=== PATIENT | female | born 1945 | race Caucasian/White ===

== ENCOUNTER 2021-05-02 08:47 | Inpatient (IN) ==
--- NOTE | 2021-05-02 08:54 | DR.CP ---
HPI Time Seen Time Seen by Provider: 05/02/21 08:53 Complaint Chief Complaint Doctor Comments: 75 y/o female presents with sudden onset of chest discomfort, chest congestion this am. Was fine on awakening. Denies recent illness, did have recent GB surgery about 10 days ago. Has been laying around a lot. Suddenly felt chest congestion, associated with chest discomfort. Pain is pressure like, across the chest, does not radiate. Nothing makes it better, nothing makes it worse. Took her morning meds, including ASA. COVID-19 Coronavirus risk:travel/contact w/high risk person: No Has patient experienced Coronavirus symptoms: Yes Coronavirus symptoms experienced: Shortness of Breath Reviewed Nurses Notes Review: Yes Source History Provided: Patient Mode of Arrival Mode of Arrival: Wheelchair PMH PMH Past Medical History: Coronary Artery Disease, Diabetes and Hypertension Past Surgical History: Yes Surgical History: Cholecystectomy Family History History of Family Medical Conditions: No Social History Does patient currently use any type of tobacco product: No Alcohol Use: None Do you use any recreational Drugs:: No Travel Risk Coronavirus risk:travel/contact w/high risk person: No ROS Review of Systems Constitutional: Weakness Eyes: No Symptoms Reported ENTM: No Symptoms Reported Respiratoy: Short of Breath Cardiovascular: Chest Pain Gastrointestinal/Abdominal: No Symptoms Reported Genitourinary: No Symptoms Reported Neurological: No Symptoms Reported Musculoskeletal: No Symptoms Reported Integumentary: No Symptoms Reported Hematologic/Lymphatic: No Symptoms Reported Endocrine: No Symptoms Reported Psychiatric: No Symptoms Reported All Other Systems: Reviewed and Negative PE Vitals Vitals: Temperature 97.7 F Pulse Rate 70 Respiratory Rate 32 Blood Pressure 135/62 O2 Sat by Pulse Oximetry 100 General Limitations: No Limitations General Appearance: Alert and In Distress Head Head Exam: Normal Inspection Eyes Eye exam: Normal Appearance, PERRL and EOMI ENT ENT Exam: Normal Exam Chest Chest Inspection: Normal Inspection Respiratory Respiratory Exam: Normal Lung Sounds Bilat and Respiratory Distress; negative Accessory Muscle Use Respiratory Exam: Bilateral: Clear to Auscultation Cardiovascular Cardiovascular Exam: Regular Rate, Normal Rhythm and Normal Heart Sounds Abdominal Exam Abdominal Exam: Normal Inspection, Normal Bowel Sounds and Soft; negative Tenderness Extremities Extremities Exam: Normal Inspection and Full ROM; negative Tenderness and Edema Back Back Exam: Normal Inspection Neurologic Neurological Exam: Alert, Oriented X3 and CN II-XII Intact; negative Motor Sensory Deficit Psychiatric Psychiatric Exam: Anxious Skin Skin Exam: Warm and Dry MDM Differential Diagnosis Differential Diagnosis: Angina, Aortic Dissection, CHF, Myocardial Infarction, Pneumonia and Pulmonary Embolus COURSE Treatment Treatment: 75 y/o female presents with chest discomfort and dyspnea. Has been recovering from GB surgery, laying around more. W/u initiated. 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 CXR with probable CHF, given IV lasix, IV morphine. BNP is elevated to 599. D-dimer elevated as well, will pursue CTA of the chest to r/o PE. CTA without PEs, + has CHF, + bibasilar atelectasis, vs infiltrate. Given addirtional IV lasix, given IV rocephin for antibiotic coverage. Discussed with her MD, Dr. Crews, will admit. ROR Labs Reviewed Laboratory Results Reviewed?: Yes Result Diagrams: 05/02/21 08:49 05/02/21 08:49 Laboratory: WBC 12.9 X10^3/uL (3.6-10.0) H 05/02/21 08:49 RBC 4.08 X10^6/uL (3.5-5.4) 05/02/21 08:49 Hgb 12.3 g/dL (12.0-16.0) 05/02/21 08:49 Hct 37.5 % (36.0-47.0) 05/02/21 08:49 MCV 91.9 fL (80.0-100.0) 05/02/21 08:49 MCH 30.1 pg (27.0-34.0) 05/02/21 08:49 MCHC 32.7 g/dL (33.0-35.0) L 05/02/21 08:49 RDW 14.7 % (11.6-16.5) 05/02/21 08:49 Plt Count 333 X10^3/uL (150.0-450.0) 05/02/21 08:49 MPV 9.8 fL (7.4-11.0) 05/02/21 08:49 Neut % (Auto) 57.1 % (42.0-75.0) 05/02/21 08:49 Lymph % (Auto) 31.1 % (21.0-51.0) 05/02/21 08:49 [place] % (Auto) 6.4 % (0.0-13.0) 05/02/21 08:49 Eos % (Auto) 4.2 % (0.9-2.9) H 05/02/21 08:49 Baso % (Auto) 1.2 % (0.2-1.0) H 05/02/21 08:49 Neut # (Auto) 7.3 x10^3/uL (2.2-4.8) H 05/02/21 08:49 Lymph # (Auto) 4.0 X10^3/uL (1.3-2.9) H 05/02/21 08:49 [place] # (Auto) 0.8 x10^3/uL (0.3-0.8) 05/02/21 08:49 Eos # (Auto) 0.5 x10^3/uL (0.0-0.2) H 05/02/21 08:49 Baso # (Auto) 0.2 X10^3/uL (0.0-0.1) H 05/02/21 08:49 Absolute Nucleated RBC 0.1 /100WBC 05/02/21 08:49 D-Dimer 1.16 ug/ml (0.0-0.57) H* 05/02/21 08:49 Sodium 138 mmol/L (136-145) 05/02/21 08:49 Corrected Sodium 141 mmol/L (136-145) 05/02/21 08:49 Potassium 3.5 mmol/L (3.5-5.1) 05/02/21 08:49 Chloride 102 mmol/L (98-107) 05/02/21 08:49 Carbon Dioxide 23.3 mmol/L (21-32) 05/02/21 08:49 BUN 16 mg/dL (7-18) 05/02/21 08:49 Creatinine 1.06 mg/dL (0.55-1.02) H 05/02/21 08:49 Est GFR (MDRD) Af Amer > 60 (>60) 05/02/21 08:49 Est GFR (MDRD) Non-Af 54 (>60) L 05/02/21 08:49 Glucose 206 mg/dL (65-99) H 05/02/21 08:49 POC Glucose (mg/dL) 209 mg/dL (65-99) H 05/02/21 08:52 Calcium 8.7 mg/dL (8.5-10.1) 05/02/21 08:49 Corrected Calcium TNP 05/02/21 08:49 Total Bilirubin 0.30 mg/dL (0.2-1.0) 05/02/21 08:49 AST 21 Units/L (15-37) 05/02/21 08:49 ALT 32 Units/L (12-78) 05/02/21 08:49 Alkaline Phosphatase 55 Units/L (46-116) 05/02/21 08:49 Creatine Kinase 55 Units/L (26-192) 05/02/21 08:49 CK-MB (CK-2) < 1.0 ng/mL (0-4.0) 05/02/21 08:49 CK/CKMB % Calc 1.8 % (<4) 05/02/21 08:49 Troponin I 0.07 ng/mL (0-1.5) 05/02/21 08:49 B-Natriuretic Peptide 599 pg/mL (0-79) H* 05/02/21 08:49 Total Protein 7.2 g/dL (6.4-8.2) 05/02/21 08:49 Albumin 3.4 g/dL (3.4-5.0) 05/02/21 08:49 Globulin 3.8 g/dL (2.5-4.5) 05/02/21 08:49 Albumin/Globulin Ratio 0.9 Ratio (1.1-2.1) L 05/02/21 08:49 SARS-CoV-2 (PCR) Negative (NEGATIVE) 05/02/21 09:10 Influenza Type A (PCR) Negative (NEGATIVE) 05/02/21 09:10 Influenza Type B (PCR) Negative (NEGATIVE) 05/02/21 09:10 RSV (PCR) Negative (NEGATIVE) 05/02/21 09:10 XRAY XRAY Interpreted by: Radiologist X-ray Results: CXR - + pulmonary vascular congestion. CTA - + CHF, effusion. EKG Rate: 96 [place]: Normal Rhythm: NSR Block: None Hypertrophy: None ST: Nonsp (probable old anterior ND) Opioid Opioid Risk Tool Total: 0 Total Score Risk Category: Low Risk Copyright: Isidoro DELANEY predicting aberrant behaviors Diagnosis Discharge Problem: New onset of congestive heart failure Instructions Forms: Precautions for COVID19 [facility] Patient Portal Social Distancing
[2021-05-02 09:00] VITALS: BMI 31.5
[2021-05-02 09:06] LABS: BASOPHILS # (AUTO) 0.2 X10^3/uL (0.0-0.1); BASOPHILS % (AUTO) 1.2 % (0.2-1.0); EOSINOPHILS # (AUTO) 0.5 x10^3/uL (0.0-0.2); EOSINOPHILS % (AUTO) 4.2 % (0.9-2.9); HEMATOCRIT 37.5 % (36.0-47.0); HEMOGLOBIN 12.3 g/dL (12.0-16.0); LYMPHOCYTES % (AUTO) 31.1 % (21.0-51.0); MEAN CORPUSCULAR HEMOGLOBIN 30.1 pg (27.0-34.0); MEAN CORPUSCULAR HGB CONC 32.7 g/dL (33.0-35.0); MEAN CORPUSCULAR VOLUME 91.9 fL (80.0-100.0); MEAN PLATELET VOLUME 9.8 fL (7.4-11.0); MONOCYTES # (AUTO) 0.8 x10^3/uL (0.3-0.8); MONOCYTES % (AUTO) 6.4 % (0.0-13.0); NEUTROPHILS # (AUTO) 7.3 x10^3/uL (2.2-4.8); NEUTROPHILS % (AUTO) 57.1 % (42.0-75.0); PLATELET COUNT 333 X10^3/uL (150.0-450.0); RED BLOOD COUNT 4.08 X10^6/uL (3.5-5.4); RED CELL DISTRIBUTION WIDTH 14.7 % (11.6-16.5); WHITE BLOOD COUNT 12.9 X10^3/uL (3.6-10.0)
[2021-05-02] MEDS ORDERED: MORPHINE SULFATE INJ 4 MG IVP ONE (09:08)
[2021-05-02] MEDS ORDERED: LASIX IVP ONE ×2 (09:08→12:31)
[2021-05-02] MEDS ORDERED: LASIX ONE ×2 (09:27→12:53)
[2021-05-02] MEDS ORDERED: MORPHINE SULFATE INJ 4 MG ONE (09:27)
[2021-05-02 09:31] LABS: ALANINE AMINOTRANSFERASE 32 Units/L (12-78); ALBUMIN 3.4 g/dL (3.4-5.0); ALKALINE PHOSPHATASE 55 Units/L (46-116); ASPARTATE AMINO TRANSFERASE 21 Units/L (15-37); BLOOD UREA NITROGEN 16 mg/dL (7-18); CALCIUM 8.7 mg/dL (8.5-10.1); CARBON DIOXIDE 23.3 mmol/L (21-32); CHLORIDE 102 mmol/L (98-107); CKMB % 1.8 % (<4); COR NA(FOR HYPERGLY) 141 mmol/L (136-145); CREATINE KINASE 55 Units/L (26-192); CREATINE KINASE MB < 1.0 ng/mL (0-4.0); CREATININE 1.06 mg/dL (0.55-1.02); SODIUM 138 mmol/L (136-145); TOTAL PROTEIN 7.2 g/dL (6.4-8.2); TROPONIN I 0.07 ng/mL (0-1.5); eGFR NON BLACK RACES 54 (>60)
--- NOTE | 2021-05-02 10:12 | RAD ---
HISTORYChest pain SOBSTUDYPortable AP [id number] size remains normal. There are now bilateral confluent areas of airspace disease, right greater than left. No dominant mass, pneumothorax or pleural fluid is identified.IMPRESSIONInterval appearance of bilateral airspace disease consistent with any combination of pneumonia and pulmonary edema. Correlation with clinical and serologic findings may assist in this radiographic differential.Electronically signed by: JOSE REDDY (May 02, 2021 10:10:29)
--- NOTE | 2021-05-02 11:25 | CT ---
HISTORYShortness of breathSTUDYCTA chest with contrast for pulmonary embolusTechnique: Axial post-contrast images with coronal, sagittal, and 3 dimensional maximum intensity projection images obtained and evaluated. Dose reduction procedures were used with mA/kv adjusted for body size.COMPARISONNoneFINDINGSThere is no evidence for acute pulmonary thromboembolic disease. Examination of the mediastinum demonstrates no evidence for mediastinal masses, enlarged mediastinal or enlarged hilar adenopathy or significant aortic abnormality. The heart is enlarged. Bilateral pleural effusions are present. Coronary artery calcifications are identified. No chest wall or axillary abnormality is identified. Those portions of the upper abdominal organs visualized were within normal limits to the limitations of early arterial injection timing with the exception of a 5 mm nonobstructing left renal calculus. Examination of the lung sinha demonstrated diffusely prominent interstitium with multiple Jourdan's B lines bilaterally. Additionally there is alveolar filling in the upper lobes bilaterally.. Findings would seem most consistent with congestive heart failure in the form of interstitial pulmonary edema and asymmetric alveolar edema. However concomitantl infection should be clinically excluded. Additionally there are areas of atelectasis and possibly consolidation in the in both lower lobes, right greater than left, which could also represent infection. No nodules masses peribronchial thickening, or bronchiectasis is identified.IMPRESSIONNo evidence for acute pulmonary thromboembolic diseaseCardiomegaly with congestive heart failure in the form of interstitial pulmonary edema and likely some asymmetric alveolar edemaAreas of atelectasis/consolidation in the lower lobes bilaterally right greater than left possibly indicative of concomitant infection. Clinical and laboratory correlation is recommended.Bilateral pleural effusions5 mm nonobstructing left upper pole renal calculus incidentally identifiedElectronically signed by: SILVA FARRAR (May 02, 2021 11:22:51)
[2021-05-02] MEDS ORDERED: ROCEPHIN 1 GRAM IV PREMIX 1 G/50 ML IV.SOLN. IV ONE (12:53)
[2021-05-02] MEDS: ROCEPHIN VIAL 1 GRAM 1 G in NS 100 ML IV + SPIKE MINIBAG* 100 ML IV SCH (13:01)
--- NOTE | 2021-05-02 15:34 | DR.H&P ---
H&P History & Physical for Day of: H&P Date: 05/02/21 Chief Complaint Chief Complaint: SOB Allergies Allergies Allergy/AdvReac Type Severity Reaction Status Date / Time Penicillins Allergy Verified 04/19/21 06:50 Sulfa (Sulfonamide Allergy Verified 04/19/21 06:50 Antibiotics) [SULFA] History of Present Illness History of Present Illness: 75 yo WF with acute chest pain and SOB around 0630 this am. The pain was like a tight pressure and she subsequently came to ED for evaluation. She reports nothing made the pain better or worse. Diaphoresis was not present. She does report a ME sometime last year but it was asymptomatic. 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 She does report having a heart valve problem monitored by her grain trimmer. Past Medical History Past Medical History: Arthritis, Coronary Artery Disease, Diabetes, Dyslipidemia and Hypertension Past Surgical History Surgical History: Cholecystectomy and Hysterectomy Additional Surgical History: Right Carpal Tunnel release/ Bilateral Cataract Surgery/Left Foot Surgery Family History Family Medical History: Diabetes Mellitus, Coronary Artery Disease and Hypertension Family History Comment: Kidney disease/ Alcoholism Social History Does patient currently use any type of tobacco product: No Have you used tobacco products in the last 12 months: No Type of Tobacco Use: None Does any household member use tobacco: No Alcohol Use: None Medications Home Medications: Penicillins Allergy (Verified 04/19/21 06:50) Sulfa (Sulfonamide Antibiotics) [SULFA] Allergy (Verified 04/19/21 06:50) CONTINUE taking the following medications amlodipine 10 mg PO DAILY 05/02/21 [History] aspirin 325 mg PO DAILY 05/02/21 [History] hydrocortisone See Rx Instructions .ROUTE .COMPLEX PRN 05/02/21 [History] metformin 500 mg PO BID 05/02/21 [History] metoprolol succinate 25 mg PO DAILY 05/02/21 [History] pioglitazone [Actos] 30 mg PO DAILY 05/02/21 [History] pravastatin 40 mg PO DAILY 05/02/21 [History] valsartan 40 mg PO DAILY 05/02/21 [History] Labs Result Diagrams: 05/02/21 08:49 05/02/21 08:49 Labs: Laboratory WBC 12.9 X10^3/uL (3.6-10.0) H 05/02/21 08:49 RBC 4.08 X10^6/uL (3.5-5.4) 05/02/21 08:49 Hgb 12.3 g/dL (12.0-16.0) 05/02/21 08:49 Hct 37.5 % (36.0-47.0) 05/02/21 08:49 MCV 91.9 fL (80.0-100.0) 05/02/21 08:49 MCH 30.1 pg (27.0-34.0) 05/02/21 08:49 MCHC 32.7 g/dL (33.0-35.0) L 05/02/21 08:49 RDW 14.7 % (11.6-16.5) 05/02/21 08:49 Plt Count 333 X10^3/uL (150.0-450.0) 05/02/21 08:49 MPV 9.8 fL (7.4-11.0) 05/02/21 08:49 Neut % (Auto) 57.1 % (42.0-75.0) 05/02/21 08:49 Lymph % (Auto) 31.1 % (21.0-51.0) 05/02/21 08:49 [place] % (Auto) 6.4 % (0.0-13.0) 05/02/21 08:49 Eos % (Auto) 4.2 % (0.9-2.9) H 05/02/21 08:49 Baso % (Auto) 1.2 % (0.2-1.0) H 05/02/21 08:49 Neut # (Auto) 7.3 x10^3/uL (2.2-4.8) H 05/02/21 08:49 Lymph # (Auto) 4.0 X10^3/uL (1.3-2.9) H 05/02/21 08:49 [place] # (Auto) 0.8 x10^3/uL (0.3-0.8) 05/02/21 08:49 Eos # (Auto) 0.5 x10^3/uL (0.0-0.2) H 05/02/21 08:49 Baso # (Auto) 0.2 X10^3/uL (0.0-0.1) H 05/02/21 08:49 Absolute Nucleated RBC 0.1 /100WBC 05/02/21 08:49 D-Dimer 1.16 ug/ml (0.0-0.57) H* 05/02/21 08:49 Sodium 138 mmol/L (136-145) 05/02/21 08:49 Corrected Sodium 141 mmol/L (136-145) 05/02/21 08:49 Potassium 3.5 mmol/L (3.5-5.1) 05/02/21 08:49 Chloride 102 mmol/L (98-107) 05/02/21 08:49 Carbon Dioxide 23.3 mmol/L (21-32) 05/02/21 08:49 BUN 16 mg/dL (7-18) 05/02/21 08:49 Creatinine 1.06 mg/dL (0.55-1.02) H 05/02/21 08:49 Est GFR (MDRD) Af Amer > 60 (>60) 05/02/21 08:49 Est GFR (MDRD) Non-Af 54 (>60) L 05/02/21 08:49 Glucose 206 mg/dL (65-99) H 05/02/21 08:49 POC Glucose (mg/dL) 209 mg/dL (65-99) H 05/02/21 08:52 Calcium 8.7 mg/dL (8.5-10.1) 05/02/21 08:49 Corrected Calcium TNP 05/02/21 08:49 Total Bilirubin 0.30 mg/dL (0.2-1.0) 05/02/21 08:49 AST 21 Units/L (15-37) 05/02/21 08:49 ALT 32 Units/L (12-78) 05/02/21 08:49 Alkaline Phosphatase 55 Units/L (46-116) 05/02/21 08:49 Creatine Kinase 55 Units/L (26-192) 05/02/21 08:49 CK-MB (CK-2) < 1.0 ng/mL (0-4.0) 05/02/21 08:49 CK/CKMB % Calc 1.8 % (<4) 05/02/21 08:49 Troponin I 0.07 ng/mL (0-1.5) 05/02/21 08:49 B-Natriuretic Peptide 599 pg/mL (0-79) H* 05/02/21 08:49 Total Protein 7.2 g/dL (6.4-8.2) 05/02/21 08:49 Albumin 3.4 g/dL (3.4-5.0) 05/02/21 08:49 Globulin 3.8 g/dL (2.5-4.5) 05/02/21 08:49 Albumin/Globulin Ratio 0.9 Ratio (1.1-2.1) L 05/02/21 08:49 SARS-CoV-2 (PCR) Negative (NEGATIVE) 05/02/21 09:10 Influenza Type A (PCR) Negative (NEGATIVE) 05/02/21 09:10 Influenza Type B (PCR) Negative (NEGATIVE) 05/02/21 09:10 RSV (PCR) Negative (NEGATIVE) 05/02/21 09:10 Review of Systems Constitutional: Weakness Eyes: No Symptoms Reported ENT: No Symptoms Reported Respiratory: Shortness of Breath Cardiovascular: Chest Pain and Orthopnea Gastrointestinal: Diarrhea Genitourinary: No Symptoms Reported Musculoskeletal: No Symptoms Reported Skin: No Symptoms Reported Neurological: No Symptoms Reported Physical Exam Vital Signs: Temperature 98.1 F Pulse Rate [Left Brachial] 86 Pulse Rate 82 Respiratory Rate 20 Blood Pressure [Left Arm] 128/61 Blood Pressure 135/61 O2 Sat by Pulse Oximetry 99 Oriented: Normal Eyes: Normal Ear: Normal Nose: Normal Respiratory: RLL Diminished and LLL Diminished Cardiovascular: Normal : Normal Auscultation: Bowel Sounds: Normal Palpation: Normal Tenderness: Normal Skin: Normal Musculoskeletal: Normal Psychiatric: Normal Mood Description: Calm Affect: Normal Speech Pattern: Clear and Appropriate Assessment/Plan (1) New onset of congestive heart failure: Status: Acute Plan: IV lasix for diuresis. Recheck BNP in am and CXR. (2) Diabetes mellitus type 2 in nonobese: Status: Acute Plan: Sliding scale regular insulin protocol. (3) HTN (hypertension): Status: Acute Plan: Resume home meds but D/C Amlodipine. (4) Heart valve disease: Status: Acute Plan: Consulting Cardiology, Dr. Yepez. (5) Dyspnea due to congestive heart failure: Narrative Support Text: Improved since admission. Status: Acute Plan: Diuresis. (6) Chest pain: Status: Acute Plan: Check Serial CE's. (7) Hypoxia: Status: Acute Plan: Supplemental O2 with IV diuresis. Review H&P Reviewed: Yes Patient was examined?: Yes
[2021-05-02] MEDS ORDERED: HumuLIN R SC PRN (15:48)
[2021-05-02 16:50] LABS: CKMB % 5.5 % (<4)
[2021-05-02 16:52] LABS: CREATINE KINASE MB 11.6 ng/mL (0-4.0); TROPONIN I 4.64 ng/mL (0-1.5)
[2021-05-02] MEDS: LOPRESSOR TAB 25 MG PO SCH ×3 (17:50→20:00)
[2021-05-02] MEDS ORDERED: RESTORIL CAP 15 MG PO PRN (19:30)
[2021-05-02] MEDS ORDERED: GLUCOPHAGE PO SCH (21:00)
[2021-05-02] MEDS ORDERED: POTASSIUM CHL 40 MEQ/NS 0.45% 500 ML IV PRN (22:13)
[2021-05-02] MEDS ORDERED: POTASSIUM CHLORIDE LIQ 20 MEQ UDC PO PRN (22:13)
[2021-05-02] MEDS ORDERED: MICRO K EXTEN CAP 10 MEQ PO PRN (22:13)
[2021-05-02] MEDS ORDERED: KLOR-CON PO PRN (22:13)
[2021-05-02] MEDS ORDERED: K-RIDER 10 MEQ/NS 100 ML 10 MEQ/100 ML BAG IV PRN (22:13)
[2021-05-02] MEDS ORDERED: POTASSIUM CHL 60 MEQ/NS 0.45% 500 ML IV PRN (22:13)
[2021-05-02 22:22] LABS: CKMB % 4.4 % (<4)
[2021-05-02 22:24] LABS: TROPONIN I 8.64 ng/mL (0-1.5)
[2021-05-02] MEDS ORDERED: NITRO-BID OINT 2% Multi-Dose tube TD ONE (22:37)
[2021-05-02] MEDS ORDERED: HEPARIN SODIUM IN D5W 25,000 UNITS/500 ML BAG IV PRN (23:01)
[2021-05-02 23:33] LABS: HEMATOCRIT 30.9 % (36.0-47.0); HEMOGLOBIN 10.4 g/dL (12.0-16.0)
[2021-05-02] MEDS: MAGNESIUM SULFATE 1 GRAM/100 mL PREMIX 1 G/100 ML BAG IV PRN (23:55)
[2021-05-02] MEDS: K-DUR TAB 20 MEQ PO PRN (23:55)
[2021-05-03] MEDS ORDERED: HEPARIN SODIUM INJ 5000 UNITS IVP ONE ×2 (00:04→06:46)
[2021-05-03] MEDS: MAGNESIUM SULFATE 1 GRAM/100 mL PREMIX 1 G/100 ML BAG IV PRN (00:45)
[2021-05-03 04:14] LABS: BASOPHILS # (AUTO) 0.1 X10^3/uL (0.0-0.1); BASOPHILS % (AUTO) 1.4 % (0.2-1.0); EOSINOPHILS # (AUTO) 0.3 x10^3/uL (0.0-0.2); EOSINOPHILS % (AUTO) 3.6 % (0.9-2.9); HEMATOCRIT 31.4 % (36.0-47.0); HEMOGLOBIN 10.6 g/dL (12.0-16.0); LYMPHOCYTES % (AUTO) 22.8 % (21.0-51.0); MEAN CORPUSCULAR HEMOGLOBIN 30.7 pg (27.0-34.0); MEAN CORPUSCULAR HGB CONC 33.7 g/dL (33.0-35.0); MEAN CORPUSCULAR VOLUME 91.1 fL (80.0-100.0); MEAN PLATELET VOLUME 9.8 fL (7.4-11.0); MONOCYTES # (AUTO) 0.8 x10^3/uL (0.3-0.8); MONOCYTES % (AUTO) 9.8 % (0.0-13.0); NEUTROPHILS # (AUTO) 5.4 x10^3/uL (2.2-4.8); NEUTROPHILS % (AUTO) 62.4 % (42.0-75.0); PLATELET COUNT 232 X10^3/uL (150.0-450.0); RED BLOOD COUNT 3.45 X10^6/uL (3.5-5.4); RED CELL DISTRIBUTION WIDTH 14.4 % (11.6-16.5); WHITE BLOOD COUNT 8.6 X10^3/uL (3.6-10.0)
[2021-05-03 04:48] LABS: ALANINE AMINOTRANSFERASE 26 Units/L (12-78); ALBUMIN 2.8 g/dL (3.4-5.0); ALKALINE PHOSPHATASE 45 Units/L (46-116); ASPARTATE AMINO TRANSFERASE 40 Units/L (15-37); BLOOD UREA NITROGEN 13 mg/dL (7-18); CALCIUM 8.3 mg/dL (8.5-10.1); CARBON DIOXIDE 28.5 mmol/L (21-32); CHLORIDE 103 mmol/L (98-107); CKMB % 3.4 % (<4); COR CA(FOR HYPOALB) 9.3 mg/dL (8.5-10.1); COR NA(FOR HYPERGLY) 139 mmol/L (136-145); CREATINE KINASE 205 Units/L (26-192); CREATININE 0.92 mg/dL (0.55-1.02); MAGNESIUM 2.7 mg/dL (1.7-2.9); SODIUM 138 mmol/L (136-145); TOTAL PROTEIN 5.9 g/dL (6.4-8.2); eGFR NON BLACK RACES > 60 (>60)
[2021-05-03 04:50] LABS: TROPONIN I 8.44 ng/mL (0-1.5)
--- NOTE | 2021-05-03 06:02 | RAD ---
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 The cardiac silhouette is unremarkable. Mild bibasilar airspace disease, improved from previous 05/02/2021. No pneumothorax. The bony thorax is unremarkable.IMPRESSIONMild bibasilar airspace disease improved from previous 05/02/2021..Electronically signed by: Oj Olsen (May 03, 2021 06:00:22)
[2021-05-03] MEDS: K-DUR TAB 20 MEQ PO PRN (06:28)
[2021-05-03] MEDS ORDERED: ROCEPHIN VIAL 1 GRAM ONE (08:32)
[2021-05-03] MEDS: ROCEPHIN VIAL 1 GRAM 1 G in NS 100 ML IV + SPIKE MINIBAG* 100 ML IV SCH (08:39)
[2021-05-03] MEDS: LOPRESSOR TAB 25 MG PO SCH (08:40)
[2021-05-03] MEDS ORDERED: LASIX IVP ONE (09:00)
[2021-05-03] MEDS ORDERED: DIOVAN TAB 80 MG PO SCH (09:00)
[2021-05-03] MEDS ORDERED: ASPIRIN PO SCH (09:00)
[2021-05-03] MEDS ORDERED: NORVASC TAB 10 MG PO SCH (09:00)
[2021-05-03] MEDS ORDERED: PRAVACHOL PO SCH (09:00)
[2021-05-03] MEDS ORDERED: TOPROL XL PO SCH (09:00)
[2021-05-03] MEDS ORDERED: ACTOS PO SCH (09:00)
[2021-05-03] MEDS ORDERED: LASIX IVP SCH (09:00)
[2021-05-03] MEDS ORDERED: IMODIUM CAP 2 MG PO ONE (10:02)
[2021-05-03 13:23] VITALS: BP 135/64
[2021-05-04] MEDS ORDERED: GLUCOPHAGE PO SCH (21:00)
== END 2021-05-03 13:15 | disposition short-term general hospital (02) | DRG 292 ==
LOC: MED/SURG 08:47 → ER 08:47 → MED/SURG 13:12 → ICU 05-03 00:42
PROVIDERS: ADMIT Family Medicine; ATTEND Family Medicine
DX: R09.02 Hypoxemia; I25.10 Atherosclerotic heart disease of native coronary artery without angina pectoris; E11.65 Type 2 diabetes mellitus with hyperglycemia; I11.0 Hypertensive heart disease with heart failure; R94.31 Abnormal electrocardiogram [ECG] [EKG]; R07.89 Other chest pain; I50.9 Heart failure, unspecified; I38 Endocarditis, valve unspecified; E78.2 Mixed hyperlipidemia; Z20.822 Contact with and (suspected) exposure to COVID-19

== ENCOUNTER 2024-09-28 11:54 | Observation (INO) ==
[2024-09-28] MEDS ORDERED: NS 1,000 ML IV 1,000 ML ONE (13:28)
[2024-09-28] MEDS: ZOFRAN INJ 4 MG VIAL IVP ONE (13:34)
[2024-09-28] MEDS: NS 1,000 ML IV 1,000 ML IV SCH (13:34)
--- NOTE | 2024-09-28 13:34 | DR.NAUSEAF ---
HPI Time Seen Time Seen by Provider: 09/28/24 13:34 Primary Care Physician Primary Care Physician: Barbara Complaints Chief Complaint:: C/O extreme vomiting with onset Saturday lasting up to today. Pt denies abdominal pain or tenderness. Pt states diarrhea started this morning. Pt was seen last Saturday in office with nika, and given Levaquin but states she only took for x 5 days. Pt afebrile. Self Treatment fo Chief Complaint: none COVID-19 Coronavirus risk:travel/contact w/high risk person: No Has patient experienced Coronavirus symptoms: No Source History Provided: Patient Mode of Arrival Mode of Arrival: Ambulatory Timing Onset of Chief Complaint: 09/28/24 PMH PMH Past Medical History: Yes Past Medical History: CHF, Diabetes and CA Past Medical History Comment: HF, Heart attack in 2020, Gallbladder removal Past Surgical History: Yes Surgical History: Cholecystectomy and Hysterectomy Past Surgical History Comment: Stents, Gallbladderr removal, Carpal Tunnel Syndrome, toe surgery Family History History of Family Medical Conditions: Yes Family Medical History: Diabetes Mellitus, CA and Heart Failure Social History Does patient currently use any type of tobacco product: No Have you used tobacco products in the last 12 months: No Type of Tobacco Use: None Does any household member use tobacco: No Alcohol Use: None Do you use any recreational Drugs:: No Lives With: Spouse Lives Where: Home Travel Risk Coronavirus risk:travel/contact w/high risk person: No Has patient experienced Coronavirus symptoms: No Infectious screening In the last 2 months have you had wt loss of >10#?: NO Have you had fever, night sweats or hemotysis?: No Have you traveled outside the country in the last 6 months?: No Isolation: Standard PE Vital Signs Vitals: Vital Signs Temperature 97.8 F Pulse Rate 77 Pulse Rate 81 Pulse Rate 67 Pulse Rate 67 Pulse Rate 69 Pulse Rate 76 Pulse Rate 75 Pulse Rate 76 Pulse Rate 73 Pulse Rate 62 Pulse Rate 59 Pulse Rate 60 Pulse Rate 63 Blood Pressure 189/80 Blood Pressure 189/80 Blood Pressure 126/59 Blood Pressure 131/62 Blood Pressure 157/69 Blood Pressure 166/81 Blood Pressure 166/81 Blood Pressure 166/81 Blood Pressure 169/73 Blood Pressure 148/70 O2 Sat by Pulse Oximetry 100 O2 Sat by Pulse Oximetry 99 O2 Sat by Pulse Oximetry 94 O2 Sat by Pulse Oximetry 96 O2 Sat by Pulse Oximetry 95 O2 Sat by Pulse Oximetry 97 O2 Sat by Pulse Oximetry 95 O2 Sat by Pulse Oximetry 97 O2 Sat by Pulse Oximetry 95 O2 Sat by Pulse Oximetry 98 O2 Sat by Pulse Oximetry 97 O2 Sat by Pulse Oximetry 97 O2 Sat by Pulse Oximetry 98 [facility] Labs Reviewed 09/28/24 12:58 09/28/24 12:58 Laboratory: WBC 18.2 X10^3/uL (3.6-10.0) H 09/28/24 12:58 RBC 4.33 X10^6/uL (3.5-5.4) 09/28/24 12:58 Hgb 13.1 g/dL (12.0-16.0) 09/28/24 12:58 Hct 37.1 % (36.0-47.0) 09/28/24 12:58 MCV 85.6 fL (80.0-100.0) 09/28/24 12:58 MCH 30.2 pg (27.0-34.0) 09/28/24 12:58 MCHC 35.3 g/dL (33.0-35.0) H 09/28/24 12:58 RDW 13.7 % (11.6-16.5) 09/28/24 12:58 Plt Count 334 X10^3/uL (150.0-450.0) 09/28/24 12:58 MPV 8.2 fL (7.4-11.0) 09/28/24 12:58 Neut % (Auto) 89.0 % (42.0-75.0) H 09/28/24 12:58 Lymph % (Auto) 5.6 % (21.0-51.0) L 09/28/24 12:58 [place] % (Auto) 4.9 % (0.0-13.0) 09/28/24 12:58 Eos % (Auto) 0.1 % (0.9-2.9) L 09/28/24 12:58 Baso % (Auto) 0.4 % (0.2-1.0) 09/28/24 12:58 Neut # (Auto) 16.2 x10^3/uL (2.2-4.8) H 09/28/24 12:58 Lymph # (Auto) 1.0 X10^3/uL (1.3-2.9) L 09/28/24 12:58 [place] # (Auto) 0.9 x10^3/uL (0.3-0.8) H 09/28/24 12:58 Eos # (Auto) 0.0 x10^3/uL (0.0-0.2) 09/28/24 12:58 Baso # (Auto) 0.1 X10^3/uL (0.0-0.1) 09/28/24 12:58 Absolute Nucleated RBC 0.0 /100WBC 09/28/24 12:58 Sodium 122 mmol/L (136-145) L* 09/28/24 12:58 Corrected Sodium 123 mmol/L (136-145) L 09/28/24 12:58 Potassium 2.7 mmol/L (3.5-5.1) L* 09/28/24 12:58 Chloride 84 mmol/L (98-107) L 09/28/24 12:58 Carbon Dioxide 27.9 mmol/L (21-32) 09/28/24 12:58 BUN 19 mg/dL (7-18) H 09/28/24 12:58 Creatinine 1.30 mg/dL (0.55-1.02) H 09/28/24 12:58 Est GFR (MDRD) Af Amer 51 (>60) L 09/28/24 12:58 Est GFR (MDRD) Non-Af 42 (>60) L 09/28/24 12:58 Glucose 151 mg/dL (65-99) H 09/28/24 12:58 Calcium 9.1 mg/dL (8.5-10.1) 09/28/24 12:58 Corrected Calcium TNP 09/28/24 12:58 Magnesium 1.6 mg/dL (2.0-2.9) L 09/28/24 12:58 Total Bilirubin 0.80 mg/dL (0.2-1.0) 09/28/24 12:58 AST 22 Units/L (15-37) 09/28/24 12:58 ALT 20 Units/L (12-78) 09/28/24 12:58 Alkaline Phosphatase 86 Units/L (46-116) 09/28/24 12:58 Total Protein 7.0 g/dL (6.4-8.2) 09/28/24 12:58 Albumin 3.4 g/dL (3.4-5.0) 09/28/24 12:58 Globulin 3.6 g/dL (2.5-4.5) 09/28/24 12:58 Albumin/Globulin Ratio 0.9 Ratio (1.1-2.1) L 09/28/24 12:58 Specimen Type Clean catch urine 09/28/24 13:50 Urine Color Yellow (YELLOW) 09/28/24 13:50 Urine Appearance Hazy (CLEAR) 09/28/24 13:50 Urine pH 5.0 (5.0 - 8.0) 09/28/24 13:50 Ur Specific [place] 1.025 (1.000-1.030) 09/28/24 13:50 Urine Protein 2+ (NEGATIVE) 09/28/24 13:50 Urine Glucose (UA) Negative (NEGATIVE) 09/28/24 13:50 Urine Ketones 3+ (NEGATIVE) 09/28/24 13:50 Urine Blood 2+ (NEGATIVE) 09/28/24 13:50 Urine Nitrite Negative (NEGATIVE) 09/28/24 13:50 Urine Bilirubin Negative (NEGATIVE) 09/28/24 13:50 Urine Urobilinogen Normal (NORMAL) 09/28/24 13:50 Ur Leukocyte Esterase 1+ (NEGATIVE) 09/28/24 13:50 Urine RBC 0-2 /HPF (0-3) 09/28/24 13:50 Urine WBC 0-2 /HPF (0-5) 09/28/24 13:50 Ur Squamous Epith Cells Numerous /HPF (NEGATIVE) 09/28/24 13:50 Urine Bacteria Trace /HPF (NEGATIVE) 09/28/24 13:50 Ur Culture Indicated? No/not indicated 09/28/24 13:50 Opioid Opioid Risk Tool Age (Levi box if 16-45): No History of Preadolescent Sexual Abuse: No Total: 0 Total Score Risk Category: Low Risk Copyright: Isidoro DELANEY predicting aberrant behaviors Discharge Plan Diagnosis Discharge Problem: Electrolyte imbalance, Acute dehydration Mononucleosis Qualifiers: Infectious mononucleosis etiology: gammaherpesvirus (incl. EBV) Infectious mononucleosis complication: without complication Qualified Code(s): B27.00 - Gammaherpesviral mononucleosis without complication Nausea & vomiting Qualifiers: Vomiting type: unspecified Qualified Code(s): R11.2 - Nausea with vomiting, unspecified Discharge Plan Patient Disposition: 01 HOME, SELF-CARE Condition: Stable Orders to Discharge Patient Discharge Orders: Transfer (Routine); Ordered 09/28/24 Ordered By: NEY HERNANDEZ
[2024-09-28 13:40] LABS: BASOPHILS # (AUTO) 0.1 X10^3/uL (0.0-0.1); BASOPHILS % (AUTO) 0.4 % (0.2-1.0); EOSINOPHILS % (AUTO) 0.1 % (0.9-2.9); HEMATOCRIT 37.1 % (36.0-47.0); HEMOGLOBIN 13.1 g/dL (12.0-16.0); LYMPHOCYTES % (AUTO) 5.6 % (21.0-51.0); MEAN CORPUSCULAR HEMOGLOBIN 30.2 pg (27.0-34.0); MEAN CORPUSCULAR HGB CONC 35.3 g/dL (33.0-35.0); MEAN CORPUSCULAR VOLUME 85.6 fL (80.0-100.0); MEAN PLATELET VOLUME 8.2 fL (7.4-11.0); MONOCYTES # (AUTO) 0.9 x10^3/uL (0.3-0.8); MONOCYTES % (AUTO) 4.9 % (0.0-13.0); NEUTROPHILS # (AUTO) 16.2 x10^3/uL (2.2-4.8); PLATELET COUNT 334 X10^3/uL (150.0-450.0); RED BLOOD COUNT 4.33 X10^6/uL (3.5-5.4); RED CELL DISTRIBUTION WIDTH 13.7 % (11.6-16.5); WHITE BLOOD COUNT 18.2 X10^3/uL (3.6-10.0)
[2024-09-28 13:51] LABS: ALANINE AMINOTRANSFERASE 20 Units/L (12-78); ALBUMIN 3.4 g/dL (3.4-5.0); ALKALINE PHOSPHATASE 86 Units/L (46-116); ASPARTATE AMINO TRANSFERASE 22 Units/L (15-37); BLOOD UREA NITROGEN 19 mg/dL (7-18); CALCIUM 9.1 mg/dL (8.5-10.1); CARBON DIOXIDE 27.9 mmol/L (21-32); CHLORIDE 84 mmol/L (98-107); COR NA(FOR HYPERGLY) 123 mmol/L (136-145); GLUCOSE 151 mg/dL (65-99); eGFR NON BLACK RACES 42 (>60)
[2024-09-28 13:54] LABS: POTASSIUM 2.7 mmol/L (3.5-5.1); SODIUM 122 mmol/L (136-145)
[2024-09-28 14:11] LABS: BILIRUBIN,URINE NEGATIVE (NEGATIVE); BLOOD/HEMOGLOBIN,URINE 2+ (NEGATIVE); GLUCOSE, URINE NEGATIVE (NEGATIVE); KETONES,URINE 3+ (NEGATIVE); LEUKOCYTE ESTERASE ,URINE 1+ (NEGATIVE); NITRITES,URINE NEGATIVE (NEGATIVE); PROTEIN,URINE 2+ (NEGATIVE); UROBILINOGEN,URINE NORMAL (NORMAL)
[2024-09-28 14:20] LABS: APPEARANCE,URINE HAZY (CLEAR); BACTERIA,URINE TRACE /HPF (NEGATIVE); COLOR,URINE YELLOW (YELLOW); RBC,URINE 0-2 /HPF (0-3); SQUAMOUS EPITHELIAL CELL,UR NUMEROUS /HPF (NEGATIVE)
[2024-09-28] MEDS: POTASSIUM CHLORIDE LIQ PO ONE ×2 (14:23→19:21)
--- NOTE | 2024-09-28 14:51 | CT ---
EXAM: CT ABDOMEN AND PELVIS WITHOUT CONTRAST HISTORY: C/O extreme vomiting with onset Saturday lasting up to today. Pt denies abdominal pain or tenderness.; COMPARISON: None available. TECHNIQUE: Axial CT images were obtained through the abdomen and pelvis without contrast. Coronal and sagittal r eformatted images were included. All CT scans at this facility use dose modulation, iterative reconstruction, and/or weight based dosi ng when appropriate to reduce radiation dose to as low as reasonably achievable. FINDINGS: Please note that without the use of intravenous contrast, evaluation of organ parenchyma is limited. Clear lung bases. Unenhanced liver is unremarkable. Prior cholecystectomy. No biliary dilatation. Spleen is unremark able. Atrophic pancreas. Adrenals are normal. No hydronephrosis or perinephric stranding. Multipl e small bilateral nonobstructing renal calculi. Moderate aortoiliac atherosclerosis without aneurysm . No abnormally distended or focally thickened bowel loops. Normal right lower quadrant appendix. No free peritoneal air or fluid. Unremarkable urinary bladder. Absent uterus. No free pelvic fluid. No acute osseous findings. Osteopenia. Moderate lumbar spondylosis with grade 1 anterolisthesis at L3-L4 and L4-L5. IMPRESSION: No acute findings in the abdomen or pelvis. THIS IS AN ELECTRONICALLY VERIFIED FINAL REPORT 09/28/2024 2:48 PM - Electronically signed by Marcos Weston MD
[2024-09-28] MEDS ORDERED: CONSULT PHARMACY - POTASSIUM & MAGNESIUM XX SCH (17:40)
[2024-09-28] MEDS: ZOFRAN INJ 4 MG VIAL IVP PRN (19:20)
[2024-09-28] MEDS: MAG-OX TAB PO SCH (19:21)
[2024-09-28] MEDS: ZOFRAN INJ 4 MG VIAL ONE (19:24)
[2024-09-28 19:41] VITALS: BMI 26.6
[2024-09-28] MEDS: ENTRESTO 49/51 MG TABLET PO SCH (23:23)
[2024-09-28] MEDS: LIPITOR TAB 40 MG PO SCH (23:23)
--- NOTE | 2024-09-29 05:25 | RAD ---
EXAM:CHEST, 1 VIEWHISTORY:leukocytosis;COMPARISON:04/24FINDINGS:The cardiomediastinal silhouette is normal in size.No acute airspace disease. No pneumothorax or effusion.No acute osseous abnormality.IMPRESSION:No acute cardiopulmonary disease.THIS IS AN ELECTRONICALLY VERIFIED FINAL REPORT09/29/2024 5:22 AM - Electronically signed by Philip Payan MD
[2024-09-29 06:04] LABS: BASOPHILS # (AUTO) 0.1 X10^3/uL (0.0-0.1); BASOPHILS % (AUTO) 0.7 % (0.2-1.0); EOSINOPHILS # (AUTO) 0.1 x10^3/uL (0.0-0.2); EOSINOPHILS % (AUTO) 0.8 % (0.9-2.9); HEMOGLOBIN 11.2 g/dL (12.0-16.0); LYMPHOCYTES % (AUTO) 18.8 % (21.0-51.0); MEAN CORPUSCULAR VOLUME 85.9 fL (80.0-100.0); MEAN PLATELET VOLUME 7.7 fL (7.4-11.0); NEUTROPHILS # (AUTO) 7.6 x10^3/uL (2.2-4.8); NEUTROPHILS % (AUTO) 70.7 % (42.0-75.0); PLATELET COUNT 255 X10^3/uL (150.0-450.0); RED BLOOD COUNT 3.61 X10^6/uL (3.5-5.4); RED CELL DISTRIBUTION WIDTH 13.5 % (11.6-16.5); WHITE BLOOD COUNT 10.7 X10^3/uL (3.6-10.0)
[2024-09-29 06:24] LABS: ALANINE AMINOTRANSFERASE 15 Units/L (12-78); ALBUMIN 2.6 g/dL (3.4-5.0); ALKALINE PHOSPHATASE 62 Units/L (46-116); ASPARTATE AMINO TRANSFERASE 19 Units/L (15-37); BLOOD UREA NITROGEN 18 mg/dL (7-18); CALCIUM 8.1 mg/dL (8.5-10.1); CARBON DIOXIDE 27.6 mmol/L (21-32); CHLORIDE 94 mmol/L (98-107); COR CA(FOR HYPOALB) 9.2 mg/dL (8.5-10.1); CREATININE 0.94 mg/dL (0.55-1.02); GLUCOSE 73 mg/dL (65-99); MAGNESIUM 1.9 mg/dL (2.0-2.9); SODIUM 128 mmol/L (136-145); TOTAL PROTEIN 5.3 g/dL (6.4-8.2); eGFR NON BLACK RACES > 60 (>60)
[2024-09-29] MEDS: PLAVIX PO SCH (10:00)
[2024-09-29] MEDS: ASPIRIN EC 81 MG PO SCH (10:00)
[2024-09-29] MEDS: TOPROL XL PO SCH (10:00)
--- NOTE | 2024-09-29 10:43 | DR.H&P ---
H&P History & Physical for Day of: H&P Date: 09/29/24 Chief Complaint Chief Complaint: Nausea, vomiting and diarrhea History of Present Illness History of Present Illness: Ms. Mg is a 79-year-old female with a past medical history of type 2 diabetes, CAD, hypertension, CHF, hypertension and hyperlipidemia presented with nausea and vomiting. She was not able to keep anything down since Saturday. She was being treated outpatient for EBV and Moraxella infection. She took Levaquin for 5 days. She was seen at her PCP office yesterday and sent to the ER for evaluation. ER workup showed hyponatremia, hypokalemia and SHAILA. Chest x-ray and CTAP were negative. She was started on IV fluids and electrolyte replacement. She is feeling better today. She did get some Zofran yesterday. She also reports having diarrhea 2-3 e pisodes yesterday and 1 this morning. Denies any abdominal pain. Labs/imaging reviewed: -WBC 10.7 hemoglobin 11.2 potassium 3.0 sodium 128 magnesium 1.9 creatinine 0.94 -AIT results scanned in -Chest x-ray and CTAP reviewed Plan: Continue hydration with normal saline, replace electrolytes as per protocol. Resume home medications. Add sliding scale insulin. Zofran as needed. Will send stool studies to rule out infection. Advance diet as tolerated. Ambulate as tolerated. Monitor a.m. labs and imaging. Past Medical History Past Medical History: CHF, Diabetes and MA Past Surgical History Surgical History: Cholecystectomy and Hysterectomy Additional Surgical History: Right Carpal Tunnel release/ Bilateral Cataract Surgery/Left Foot Surgery Family History Family Medical History: MA Social History Does patient currently use any type of tobacco product: No Have you used tobacco products in the last 12 months: No Type of Tobacco Use: None Does any household member use tobacco: No Alcohol Use: None Drug Use: None Medications Home Medications: Home Medications Medication Instructions Recorded Confirmed Type furosemide 40 mg tablet 40 mg PO QDAY 03/13/23 09/28/24 History hydrochlorothiazide 25 mg tablet 25 mg PO QDAY 03/13/23 09/28/24 History nitroglycerin 0.4 mg sublingual 0.4 mg sublingual Q5-15M PRN 03/13/23 09/28/24 History tablet sacubitril 49 mg-valsartan 51 mg 1 tab PO BID 03/13/23 09/28/24 History tablet (Entresto) aspirin 81 mg tablet 81 mg PO DAILY 09/28/24 09/28/24 History Allergies Allergies Allergy/AdvReac Type Severity Reaction Status Date / Time ROSEANN Inhibitors Allergy Unknown Cough Verified 09/28/24 12:17 Penicillins Allergy Unknown Verified 09/28/24 12:17 Sulfa (Sulfonamide Allergy Unknown Verified 09/28/24 12:17 Antibiotics) [SULFA] Labs 09/29/24 05:54 09/29/24 05:54 Labs: Laboratory WBC 10.7 X10^3/uL (3.6-10.0) H 09/29/24 05:54 RBC 3.61 X10^6/uL (3.5-5.4) 09/29/24 05:54 Hgb 11.2 g/dL (12.0-16.0) L 09/29/24 05:54 Hct 31.0 % (36.0-47.0) L 09/29/24 05:54 MCV 85.9 fL (80.0-100.0) 09/29/24 05:54 MCH 31.0 pg (27.0-34.0) 09/29/24 05:54 MCHC 36.0 g/dL (33.0-35.0) H 09/29/24 05:54 RDW 13.5 % (11.6-16.5) 09/29/24 05:54 Plt Count 255 X10^3/uL (150.0-450.0) 09/29/24 05:54 MPV 7.7 fL (7.4-11.0) 09/29/24 05:54 Neut % (Auto) 70.7 % (42.0-75.0) 09/29/24 05:54 Lymph % (Auto) 18.8 % (21.0-51.0) L 09/29/24 05:54 [place] % (Auto) 9.0 % (0.0-13.0) 09/29/24 05:54 Eos % (Auto) 0.8 % (0.9-2.9) L 09/29/24 05:54 Baso % (Auto) 0.7 % (0.2-1.0) 09/29/24 05:54 Neut # (Auto) 7.6 x10^3/uL (2.2-4.8) H 09/29/24 05:54 Lymph # (Auto) 2.0 X10^3/uL (1.3-2.9) 09/29/24 05:54 [place] # (Auto) 1.0 x10^3/uL (0.3-0.8) H 09/29/24 05:54 Eos # (Auto) 0.1 x10^3/uL (0.0-0.2) 09/29/24 05:54 Baso # (Auto) 0.1 X10^3/uL (0.0-0.1) 09/29/24 05:54 Absolute Nucleated RBC 0.0 /100WBC 09/29/24 05:54 Sodium 128 mmol/L (136-145) L 09/29/24 05:54 Corrected Sodium TNP 09/29/24 05:54 Potassium 3.0 mmol/L (3.5-5.1) L 09/29/24 05:54 Chloride 94 mmol/L (98-107) L 09/29/24 05:54 Carbon Dioxide 27.6 mmol/L (21-32) 09/29/24 05:54 BUN 18 mg/dL (7-18) 09/29/24 05:54 Creatinine 0.94 mg/dL (0.55-1.02) 09/29/24 05:54 Est GFR (MDRD) Af Amer > 60 (>60) 09/29/24 05:54 Est GFR (MDRD) Non-Af > 60 (>60) 09/29/24 05:54 Glucose 73 mg/dL (65-99) 09/29/24 05:54 POC Glucose (mg/dL) 83 mg/dL (65-99) 09/29/24 06:16 Calcium 8.1 mg/dL (8.5-10.1) L 09/29/24 05:54 Corrected Calcium 9.2 mg/dL (8.5-10.1) 09/29/24 05:54 Magnesium 1.9 mg/dL (2.0-2.9) L 09/29/24 05:54 Total Bilirubin 0.50 mg/dL (0.2-1.0) 09/29/24 05:54 AST 19 Units/L (15-37) 09/29/24 05:54 ALT 15 Units/L (12-78) 09/29/24 05:54 Alkaline Phosphatase 62 Units/L (46-116) 09/29/24 05:54 B-Natriuretic Peptide 69.1 pg/mL (0-79) 09/28/24 12:58 Total Protein 5.3 g/dL (6.4-8.2) L 09/29/24 05:54 Albumin 2.6 g/dL (3.4-5.0) L 09/29/24 05:54 Globulin 2.7 g/dL (2.5-4.5) 09/29/24 05:54 Albumin/Globulin Ratio 1.0 Ratio (1.1-2.1) L 09/29/24 05:54 Specimen Type Clean catch urine 09/28/24 13:50 Urine Color Yellow (YELLOW) 09/28/24 13:50 Urine Appearance Hazy (CLEAR) 09/28/24 13:50 Urine pH 5.0 (5.0 - 8.0) 09/28/24 13:50 Ur Specific [place] 1.025 (1.000-1.030) 09/28/24 13:50 Urine Protein 2+ (NEGATIVE) 09/28/24 13:50 Urine Glucose (UA) Negative (NEGATIVE) 09/28/24 13:50 Urine Ketones 3+ (NEGATIVE) 09/28/24 13:50 Urine Blood 2+ (NEGATIVE) 09/28/24 13:50 Urine Nitrite Negative (NEGATIVE) 09/28/24 13:50 Urine Bilirubin Negative (NEGATIVE) 09/28/24 13:50 Urine Urobilinogen Normal (NORMAL) 09/28/24 13:50 Ur Leukocyte Esterase 1+ (NEGATIVE) 09/28/24 13:50 Urine RBC 0-2 /HPF (0-3) 09/28/24 13:50 Urine WBC 0-2 /HPF (0-5) 09/28/24 13:50 Ur Squamous Epith Cells Numerous /HPF (NEGATIVE) 09/28/24 13:50 Urine Bacteria Trace /HPF (NEGATIVE) 09/28/24 13:50 Ur Culture Indicated? No/not indicated 09/28/24 13:50 Review of Systems Constitutional: Weakness Eyes: No Symptoms Reported ENT: No Symptoms Reported Respiratory: No Symptoms Reported Cardiovascular: No Symptoms Reported Gastrointestinal: Nausea, Vomiting and Diarrhea Genitourinary: No Symptoms Reported Musculoskeletal: No Symptoms Reported Skin: No Symptoms Reported Neurological: No Symptoms Reported Physical Exam Vital Signs: Vital Signs Temperature 98.1 F Pulse Rate [Right Brachial] 58 Respiratory Rate 19 Blood Pressure [Right Arm] 133/62 O2 Sat by Pulse Oximetry 98 Oriented: Normal Eyes: Normal Nose: Normal Throat: Normal Respiratory: Clear Throughout Cardiovascular: Normal Auscultation: Bowel Sounds: Normal Palpation: Normal Tenderness: Normal Skin: Normal Musculoskeletal: Normal Psychiatric: Normal Mood Description: Calm Affect: Normal Speech Pattern: Clear and Appropriate Assessment/Plan (1) Acute dehydration: Status: Acute (2) Mononucleosis: Qualifiers: Infectious mononucleosis complication: without complication Infectious mononucleosis etiology: gammaherpesvirus (incl. EBV) Qualified Code(s): B27.00 - Gammaherpesviral mononucleosis without complication Status: Acute (3) Nausea & vomiting: Qualifiers: Vomiting type: unspecified Qualified Code(s): R11.2 - Nausea with vomit ing, unspecified Status: Acute (4) Hyponatremia: Status: Acute (5) Electrolyte imbalance: Status: Acute (6) Hypokalemia: Status: Acute (7) SHAILA (acute kidney injury): Status: Acute Review H&P Reviewed: Yes Patient was examined?: Yes
[2024-09-29] MEDS: POTASSIUM CHLORIDE LIQ PO SCH (12:25)
[2024-09-29] MEDS: MAG-OX TAB PO SCH (12:26)
[2024-09-29] MEDS: NovoLIN R (or HumuLIN R) SUBCUT PRN (13:19)
[2024-09-29 15:58] VITALS: RESP 19
[2024-09-29] MEDS: SNACK - Diabetic Appropriate PO SCH (20:18)
[2024-09-29] MEDS ORDERED: LIPITOR TAB 40 MG PO SCH (21:00)
[2024-09-30 06:08] LABS: BASOPHILS # (AUTO) 0.1 X10^3/uL (0.0-0.1); BASOPHILS % (AUTO) 1.3 % (0.2-1.0); EOSINOPHILS # (AUTO) 0.1 x10^3/uL (0.0-0.2); EOSINOPHILS % (AUTO) 1.3 % (0.9-2.9); LYMPHOCYTES # (AUTO) 2.1 X10^3/uL (1.3-2.9); LYMPHOCYTES % (AUTO) 23.5 % (21.0-51.0); MEAN CORPUSCULAR HEMOGLOBIN 30.6 pg (27.0-34.0); MEAN CORPUSCULAR HGB CONC 35.4 g/dL (33.0-35.0); MEAN CORPUSCULAR VOLUME 86.4 fL (80.0-100.0); MEAN PLATELET VOLUME 8.2 fL (7.4-11.0); MONOCYTES # (AUTO) 0.7 x10^3/uL (0.3-0.8); MONOCYTES % (AUTO) 8.2 % (0.0-13.0); NEUTROPHILS % (AUTO) 65.7 % (42.0-75.0); PLATELET COUNT 278 X10^3/uL (150.0-450.0); RED BLOOD COUNT 3.58 X10^6/uL (3.5-5.4); RED CELL DISTRIBUTION WIDTH 13.9 % (11.6-16.5); WHITE BLOOD COUNT 9.1 X10^3/uL (3.6-10.0)
[2024-09-30 06:19] LABS: ALANINE AMINOTRANSFERASE 18 Units/L (12-78); ALBUMIN 2.7 g/dL (3.4-5.0); ALKALINE PHOSPHATASE 66 Units/L (46-116); ASPARTATE AMINO TRANSFERASE 23 Units/L (15-37); BLOOD UREA NITROGEN 15 mg/dL (7-18); CALCIUM 8.1 mg/dL (8.5-10.1); CARBON DIOXIDE 29.9 mmol/L (21-32); CHLORIDE 99 mmol/L (98-107); COR CA(FOR HYPOALB) 9.1 mg/dL (8.5-10.1); COR NA(FOR HYPERGLY) 134 mmol/L (136-145); CREATININE 0.95 mg/dL (0.55-1.02); GLUCOSE 119 mg/dL (65-99); MAGNESIUM 2.1 mg/dL (2.0-2.9); POTASSIUM 3.5 mmol/L (3.5-5.1); SODIUM 134 mmol/L (136-145); TOTAL PROTEIN 5.5 g/dL (6.4-8.2); eGFR NON BLACK RACES > 60 (>60)
[2024-09-30] MEDS ORDERED: CONSULT PHARMACY - POTASSIUM & MAGNESIUM XX SCH (07:00)
[2024-09-30 07:57] VITALS: BP 146/66; PULSE 63; TEMP 97.4; O2SAT 98
[2024-09-30] MEDS: K-DUR TAB 20 MEQ PO SCH (10:18)
== END 2024-09-30 11:15 | disposition home or self-care (01) ==
LOC: ER 11:54 → MED/SURG 16:30 → INTOOBSV 16:30 → MED/SURG 16:54
PROVIDERS: ADMIT Family Medicine; ATTEND Family Medicine
DX: R26.89 Other abnormalities of gait and mobility; E86.0 Dehydration; E87.1 Hypo-osmolality and hyponatremia; I25.10 Atherosclerotic heart disease of native coronary artery without angina pectoris; E11.65 Type 2 diabetes mellitus with hyperglycemia; E83.42 Hypomagnesemia; R11.2 Nausea with vomiting, unspecified; N17.8 Other acute kidney failure; B96.89 Other specified bacterial agents as the cause of diseases classified elsewhere; R19.7 Diarrhea, unspecified; I10 Essential (primary) hypertension; B27.00 Gammaherpesviral mononucleosis without complication; E87.6 Hypokalemia; E78.5 Hyperlipidemia, unspecified